=== PATIENT | male | born 1955 | race Hispanic/Latino ===

== ENCOUNTER → 2019-09-27 | Outpatient (CLI) | payer MEDICARE, OTHER ==
[~2019-09-27] MED LIST: IOPAMIDOL 370 MG/ML 200 ML INFUS..BTL INJ ONE; SODIUM CHLORIDE 0.9% 100 ML ONE
[2019-09-27 14:21] LABS: BLOOD UREA NITROGEN 9 mg/dL (7-26); BUN/CREATININE RATIO 9 (6-25); CREATININE, SERUM 1.04 mg/dL (0.72-1.25); EST GLOMERULAR FILTRATION RATE > 60 ML/MIN (60-)
--- NOTE | 2019-09-27 16:04 | Diagnostic Imaging Report ---
History: Subclavian steal syndrome Comparison studies:None Technique: Axial images were obtained from the thoracic inlet. Multiplanar MIP as well as 3-D volume rendered images were reformatted from the axial source data. Intravenous contrast: 100 cc of Isovue 30. If present, stenosis is calculated utilizing the NASCET method which calculates the degree of stenosis with reference to the normal lumen of the carotid artery distal to the stenosis. Findings: Aortic arch: Patent with minimal calcified plaque. Great vessels: Right brachycephalic trunk and right subclavian artery are patent without stenosis. The left subclavian artery is suboptimally evaluated due artifact from dense IV contrast in the overlying vein. The proximal left subclavian is patent in there is mild stenosis in the proximal left subclavian artery due to calcified and soft plaque. The mid and distal segments of the left subclavian artery are poorly evaluated due to artifacts. Common carotid arteries: Patent, no stenosis. Carotid bulbs: No (0%) stenosis by NASCET criteria. Mild nonstenotic calcified plaque bilaterally. Internal carotid arteries: Patent, no abnormalities. Vertebral arteries: Patent bilaterally. Left vertebral artery origin is grossly patent but is suboptimally evaluated due to artifacts from dense IV contrast in the adjacent vein. Dominant right vertebral artery. Included wiyot of [place]: Patent, no major branch occlusion or stenosis. Mild nonstenotic calcified plaque in the right cavernous ICA segment Included spine: Mild multilevel cervical and thoracic disc degeneration. Disc osteophyte complex with ossified posterior longitudinal ligament at C5-C6 indent the thecal sac without significant canal stenosis. Incidental findings. Sequela of prior granulomatous disease with multiple calcified granulomas, bilateral pleural thickening and scarring at the lung apices bilaterally. IMPRESSION: 1. Limited evaluation of the left subclavian artery and left vertebral artery origin due artifact from dense IV contrast in the overlying vein. Patent proximal left subclavian artery with mild stenosis due to calcified and soft plaque. Left vertebral artery origin is grossly patent. Right subclavian artery and remaining segments of both vertebral arteries are patent without stenosis. 2. Patent carotid arteries without stenosis. No (0%) stenosis at the carotid bulbs bilaterally. If there is persistent concern for left-sided subclavian steal, neck MRA without and with IV contrast may further evaluate. Signed by: Dr. Vaughn Gutierrez M.D. on 09/27/2019 4:01 PM
== END ==
LOC: CT 13:02
PROVIDERS: ATTEND Internal Medicine Cardiovascular Disease
DX: G45.8 Other transient cerebral ischemic attacks and related syndromes (principal)
CPT/HCPCS: 36415; 70498; 82565; 84520; J7050; Q9967

== ENCOUNTER → 2021-06-08 | Day surgery (SDC) | payer MEDICARE ==
[~2021-06-08] MED LIST changes: +ALTOPREV40 MG PO; +EPHEDRINE SULFATE INJ 50 MG/ML VIAL ONE; +ESMOLOL HCL 100MG/10ML 10 MG/ML VIAL ONE; +FENTANYL CITRATE/PF 100MCG/2 ML INJ ONE; -IOPAMIDOL 370 MG/ML 200 ML INFUS..BTL INJ ONE; +MIDAZOLAM HCL 2 MG/2 ML VIAL ONE; +PHENYLEPHRINE HCL 1% 10 MG/ML VIAL ONE; +PROPOFOL IV EMULSION 10 MG/ML 20 ML VIAL ONE; -SODIUM CHLORIDE 0.9% 100 ML ONE
[2021-06-08 14:27] VITALS: BP 109/86
== END | disposition home or self-care (01) ==
LOC: OR 10:15
PROVIDERS: ATTEND Internal Medicine Gastroenterology
DX: K21.9 Gastro-esophageal reflux disease without esophagitis (principal); Z85.038 Personal history of other malignant neoplasm of large intestine; D12.0 Benign neoplasm of cecum; D12.2 Benign neoplasm of ascending colon; D12.3 Benign neoplasm of transverse colon; Z93.3 Colostomy status; K25.3 Acute gastric ulcer without hemorrhage or perforation; K44.9 Diaphragmatic hernia without obstruction or gangrene; K29.50 Unspecified chronic gastritis without bleeding; B96.81 Helicobacter pylori [H. pylori] as the cause of diseases classified elsewhere; E78.5 Hyperlipidemia, unspecified; Z01.810 Encounter for preprocedural cardiovascular examination; Z01.812 Encounter for preprocedural laboratory examination; Z20.822 Contact with and (suspected) exposure to COVID-19
CPT/HCPCS: 43239; 44389; 44392; 88305; 88312; 93005; C9113; J2250; J2370; J2704; J3010; U0002; 45378; 45380; 45384

== ENCOUNTER → 2024-03-19 | Outpatient (REF) | payer MEDICARE ==
[~2024-03-19] MED LIST changes: -EPHEDRINE SULFATE INJ 50 MG/ML VIAL ONE; -ESMOLOL HCL 100MG/10ML 10 MG/ML VIAL ONE; -FENTANYL CITRATE/PF 100MCG/2 ML INJ ONE; -MIDAZOLAM HCL 2 MG/2 ML VIAL ONE; -PHENYLEPHRINE HCL 1% 10 MG/ML VIAL ONE; -PROPOFOL IV EMULSION 10 MG/ML 20 ML VIAL ONE
== END ==
LOC: US 10:01
PROVIDERS: ATTEND Nurse Practitioner Family
DX: K74.60 Unspecified cirrhosis of liver (principal); K82.9 Disease of gallbladder, unspecified
CPT/HCPCS: 76705